=== PATIENT | female | born 1985 | race Caucasian/White ===

== ENCOUNTER 2017-08-14 16:05 | Emergency (ER) | payer OTHER ==
[~2017-08-14] VITALS: Ht 172.7 cm; Wt 80.0 kg
[~2017-08-14 16:05] MED LIST: LOMOTIL TABLET1 EACH PO; Motrin PO; PROMETHAZINE HC25 M1 PO; TYLENOL WITH C1 EACH PO
[2017-08-14] MEDS ORDERED: NORCO 5/3251 TABLET PO (18:13)
[2017-08-14 19:05] VITALS: BP 121/79
== END 2017-08-14 19:06 | disposition home or self-care (01) ==
LOC: EME 16:05
DX: S30.0XXA Contusion of lower back and pelvis, initial encounter (principal); W01.198A Fall on same level from slipping, tripping and stumbling with subsequent striking against other object, initial encounter; Z90.49 Acquired absence of other specified parts of digestive tract; Z88.1 Allergy status to other antibiotic agents
CPT/HCPCS: 72220; 99281; 99283